=== PATIENT | female | born 1965 | race Caucasian/White ===

== ENCOUNTER 2018-04-19 00:26 | Day surgery (SDC) | payer MEDICARE ==
[~2018-04-19] VITALS: Ht 167.6 cm; Wt 76.2 kg
[~2018-04-19 00:26] MED LIST: ASPI-1471 PO
[2018-04-19 06:22] VITALS: BP 140/76
[2018-04-19] MEDS ORDERED: LIDOCAINE/SOD BICARB 8.4% SYR ID ONE (06:30)
[2018-04-19] MEDS ORDERED: NORMOSOL R SOLN(*) 1000 ML BAG 1,000 ML IV PRN (06:30)
[2018-04-19 08:10] VITALS: BP 80/47
[2018-04-19 08:13] VITALS: BP 93/52
[2018-04-19 08:15] VITALS: BP 89/48
--- NOTE | 2018-04-19 08:19 | Short(Outpt) Discharge Summary ---
Discharge Summary Reason for Hosp/Final Diag: (1) FH: colon polyps Hospital Course & Plan: Colonoscopy with polypectomy x1 completed without any problems. Departure Discharge to: Home, Self Care Discharge Instructions Home Meds Reported Medications Aspirin (ASPIR 81) 81 Mg Tablet.dr, 81 MG PO QDAY, TAB 06/17/15 Diet: Regular Activity: As Tolerated Special Instructions: Your colonoscopy was completed without any problems and your prep was excellent (Good Job!!). I removed a small polyp from your colon and it was sent to pathology. My office will call you in the next week or two to let you know what the polyp is but, at any rate, you should have another colonoscopy in 5 years. You also have diverticulosis in your sigmoid colon. This is a condition that occurs in about 40% of people where you develop small pockets in the wall of your colon. These are benign and don't increase your risk of getting colon cancer. I recommend that you incorporate fruits and vegetables in each meal and you can even take a fiber supplement such as citrucel every day to prevent this condition from getting worse. OLLIE BONILLA MD Apr 19, 2018 08:19
[2018-04-19 08:30] VITALS: BP 111/72
[2018-04-19 08:42] VITALS: BP 95/69
[2018-04-19] MEDS ORDERED: PROPOFOL EMUL(*) 10MG/ML 20 ML 40 ML ONE (09:59)
[2018-04-19] MEDS ORDERED: LIDOCAINE MPF 1% 5 ML VIAL ONE (09:59)
== END 2018-04-19 09:00 | disposition home or self-care (01) ==
LOC: OR 00:26
PROVIDERS: ATTEND Surgery
DX: Z12.11 Encounter for screening for malignant neoplasm of colon (principal); D12.2 Benign neoplasm of ascending colon; E78.5 Hyperlipidemia, unspecified; F32.9 Major depressive disorder, single episode, unspecified; Z83.71 Family history of colonic polyps
CPT/HCPCS: 00811; 45385; 88305; J2001; J2704

== ENCOUNTER 2018-07-31 02:22 | Day surgery (SDC) | payer SELFPAY ==
[~2018-07-31] VITALS: Ht 167.6 cm; Wt 76.7 kg
[2018-07-31] MEDS ORDERED: NORMOSOL R SOLN(*) 1000 ML BAG 1,000 ML IV PRN (09:50)
[2018-07-31] MEDS ORDERED: FAMOTIDINE 20 MG TAB PO ONE (09:50)
[2018-07-31] MEDS ORDERED: LIDOCAINE/SOD BICARB 8.4% SYR ID ONE (09:50)
[2018-07-31] MEDS ORDERED: MIDAZOLAM 2 MG/2 ML VIAL IVP PRN (09:50)
[2018-07-31 10:15] VITALS: BP 111/74
[2018-07-31] MEDS ORDERED: LEVOFLOXACIN/D5W*500 MG/100 ML 100 ML IVPB ONE (11:00)
[2018-07-31] MEDS ORDERED: metroNIDAZOLE* 500MG/100ML BAG 100 ML IVPB ONE (11:00)
[2018-07-31 11:17] LABS: PLATELET COUNT, AUTOMATED 285 K/uL (150-450)
--- NOTE | 2018-07-31 11:28 | Gen Surgery History & Physical ---
History of Present Illness Chief Complaint perianal pain History of Present Illness 52 yo female with one week history of perianal pain and increasing mass. No FCS. No GI or symptoms. No prior similar s/s. No hx IBD. History Unable To Obtain Past Medical: Home Meds Reported Medications Aspirin (ASPIR 81) 81 Mg Tablet.dr, 81 MG PO QDAY, TAB 06/17/15 Allergies: Coded Allergies: Penicillins (Unverified Allergy, Unknown, 09/10/16) Patient History: FH: colon polyps Review of Systems All Systems Reviewed/Normal: Yes, Except as Noted Gastrointestinal: Other (see HPI) Exam General Appearance: Alert, Awake, No Acute Distress, Afebrile Neuro: No Gross deficits Cardiovascular: Normal Rhythm & Peripheral Pulses Respiratory: No Respiratory Distress, Clear to Auscultation : Other (large 4-) Medical Decision Making Data Points Result Diagram: 07/31/18 1111 Venous Thromboembolism VTE Risk Physician Assess for VTE Risk: Yes Patient's VTE Risk: Low VTE Diagnostic Test 2 Days Prior to Admit: No Antithrombotics Is Pt On Any Antithrombotics?: No GUILLERMINA YU MD Jul 31, 2018 11:28
[2018-07-31] MEDS ORDERED: ONDANSETRON 4 MG/2 ML VIAL ONE (12:46)
[2018-07-31] MEDS ORDERED: PROPOFOL EMUL(*) 10MG/ML 20 ML 20 ML ONE (12:46)
[2018-07-31] MEDS ORDERED: fentaNYL CITR 100 MCG/2 ML AMP ONE (12:46)
[2018-07-31] MEDS ORDERED: DEXAMETHASONE SOD PHOS 10MG/ML ONE (12:46)
--- NOTE | 2018-07-31 13:23 | Post Operative Progress Note ---
Post Operative Progress Note Date: Jul 31, 2018 Time: 13:21 Surgeon: Guillermina Anthony MD [facility] Hot Die Press Feeder: none Anesthesia: General Dr Vidales Pre-Op Diagnosis: perianal abscess Post-Op Diagnosis: same Findings: jason pus, large abscess, no obvious fistula Procedure(s): 1. EUA 2. Incision and drainage perianal abscess Specimen Removed:(May be N/A): pus Complications: none Total Tourniquet Time: NA Splint: NA Fluids: see anesthesia record Estimated Blood Loss: < 5 ml Date OP Note Dictated: Jul 31, 2018 Time OP Note Dictated: 13:23 (Ditation #[id number]) GUILLERMINA ANTHONY MD Jul 31, 2018 13:23
--- NOTE | 2018-07-31 13:42 | OPERATIVE REPORT 1 ---
EVENT DATE: July 31, 2018 SURGEON: Beth Anthony MD, FACS ANESTHESIOLOGIST: Preet Vidales MD ANESTHESIA: General anesthesia. PREOPERATIVE DIAGNOSIS Perianal abscess. POSTOPERATIVE DIAGNOSIS Perianal abscess. PROCEDURE PERFORMED 1. Examination under anesthesia. 2. Incision and drainage of perianal abscess. INDICATIONS FOR OPERATIONS This patient is a 52-year-old female with a 7 day history of enlarging, painful, perianal abscess which has not improved with aggressive nonoperative measures. She is brought to the operating room at this for incision and drainage. FINDINGS AT THE TIME OF OPERATION The patient had a large 4 x 4 x 3 cm abscess at the left lateral aspect of the anal verge. Upon opening this, there was a copious amount of jason pus. No obvious fissure or fistula connection could be identified. DESCRIPTION OF PROCEDURE On 07/31/18 the patient was brought to the operating room and placed in supine position. Appropriate lines and monitors were placed. She was induced under general anesthesia with a secure airway per anesthesia staff without difficulty. She was then placed in the dorsal lithotomy position. She was then prepped and draped in the usual sterile manner. Using sharp dissection, the abscess was opened in a radial fashion and a large amount of frankly purulent and necrotic debris was evacuated. The wound cavity was irrigated with copious sterile saline. Anoscopy did not really reveal any obvious fistula connection. All loculations were debrided using blunt dissection. Hemostasis was intact using electrocautery. The wound was irrigated until the effluent fluid was clear. The wound was then packed open with 1/2 inch Nu Gauze. The patient was then returned to the supine position and taken to the recovery room in stable condition. Final sponge and needle count reported correct times 2. MTDD
[2018-07-31 14:10] VITALS: BP 119/87
[2018-07-31 14:56] VITALS: BP 110/78
[2018-07-31 14:57] VITALS: BP 123/86
--- NOTE | 2018-07-31 15:38 | NUR ---
1450 ORTHOSTATIC VITALS STARTED, INITIAL SITTING BP WAS LOW, PT SAT AT SIDE OF BED OR 5 MINUTES, FLUIDS WIDE OPEN, REATTEMPTED, PRESSURE GOOD. STANDING PRESSURE GOOD WELL. 1500 PT TO REST ROOM, VOIDED WITHOUT DIFFICULTY, D/C INSTRUCTIONS COVERED WITH PT'S MOTHER 1510 PT AND MOTHER TO VEHICLE OUTSIDE OF ER VIA , ACCOMPANIED BY Caleb CAMARILLO, RN 350ML NR UP IN FLUID BAG, ALL BELONGINGS WITH PT, TRANSFERRED SAFELY
== END 2018-07-31 14:10 | disposition home or self-care (01) ==
LOC: OR 02:22
PROVIDERS: ATTEND Surgery
DX: K61.0 Anal abscess (principal)
CPT/HCPCS: 36415; 46050; 85025; 86140; J1100; J1956; J2250; J2405; J2704; J3010